=== PATIENT | female | born 1970 | race American Indian/Alaskan Native ===

== ENCOUNTER 2019-10-02 14:32 | Emergency (ER) | payer OTHER ==
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
[2019-10-02] MEDS ORDERED: dexAMETHasone 20 MG/5 ML VIAL IM ONE (15:53)
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
[2019-10-02] MEDS ORDERED: CYCLOBENZAPRINE 10 MG TAB PO ONE (16:02)
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
[2019-10-02 17:04] LABS: Bilirubin,Urine NEG (Negative); Blood,Urine NEG (Negative); Color,Urine Yellow (Yellow); Mucus,Urine FEW /HPF; Protein,Urine <15 mg/dL mg/dL (Negative); Urobilinogen,Urine < 2.0 mg/dL (<2.0)
[2019-10-02] MEDS ORDERED: AZITHROMYCIN 250 MG TAB PO ONE (17:09)
[2019-10-02] MEDS ORDERED: LIDOCAINE-MPF (1%) 10 MG/1 ML VIAL 5 ML INFILTRATI ONE (17:09)
[2019-10-02] MEDS ORDERED: traMADol 50 MG TAB PO ONE (17:09)
[2019-10-02 17:11] LABS: HCG Qualitative,Urine Negative (Negative)
[2019-10-02 17:45] VITALS: BP 149/96
== END 2019-10-02 17:44 | disposition home or self-care (01) ==
LOC: ED 14:32
DX: S16.1XXA Strain of muscle, fascia and tendon at neck level, initial encounter (principal); S39.012A Strain of muscle, fascia and tendon of lower back, initial encounter; S76.011A Strain of muscle, fascia and tendon of right hip, initial encounter; N76.0 Acute vaginitis; Z79.899 Other long term (current) drug therapy; Z98.890 Other specified postprocedural states; Z98.51 Tubal ligation status; Z71.1 Person with feared health complaint in whom no diagnosis is made; V49.59XA Passenger injured in collision with other motor vehicles in traffic accident, initial encounter; Y92.410 Unspecified street and highway as the place of occurrence of the external cause; Y93.89 Activity, other specified; Y99.8 Other external cause status
CPT/HCPCS: 72040; 81001; 81025; 87210; 96372; 99284; J0696; J1100

== ENCOUNTER 2020-04-28 18:49 | Emergency (ER) | payer MEDICAID ==
[2020-04-28 19:39] VITALS: BP 146/100
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
== END 2020-04-28 20:10 | disposition left against medical advice (07) ==
LOC: ED 18:49
DX: R06.02 Shortness of breath (principal); Z53.21 Procedure and treatment not carried out due to patient leaving prior to being seen by health care provider